=== PATIENT | male | born 1945 ===

== ENCOUNTER → 2021-05-03 11:34 | Outpatient (CLI) | payer MEDICARE, SELFPAY ==
[2021-05-03 14:12] LABS: COVID19 -Nasal RAPID Negative (Negative)
== END ==
PROVIDERS: Visit Provider Nurse Practitioner
DX: Z01.812 Encounter for preprocedural laboratory examination (principal); Z20.822 Contact with and (suspected) exposure to COVID-19
CPT/HCPCS: 87635; C9803

== ENCOUNTER 2021-05-06 08:20 | Observation (INO) | payer MEDICARE, OTHER, SELFPAY ==
[2021-04-28 09:19] VITALS: BMI 24.4
[2021-05-05] VITALS (12 sets, daily range): BP systolic 102–142; BP diastolic 62–89; PULSE 59–691; RESP 13–18; TEMP 35.6–36.5; O2SAT 93–98; BMI 24.4
--- NOTE | 2021-05-05 06:30 | DI.RAD.S_ITS ---
PROCEDURE: XR KNEE LT 1TO2V INDICATIONS: postop LEFT TOTAL KNEE TECHNIQUE: 2 view(s) of the knee acquired. [facility] [place] X[place] KNEE 4+ VIEWS LEFT, 03/04/2021, 9:15. FINDINGS: Bones: Patient is status post knee joint arthroplasty. Hardware components are in expected positions. Visualized bony structures are intact. Soft tissues: Overlying postoperative changes are noted. IMPRESSION: Postoperative changes as above. Dictated by: Chrissy Krishnamurthy M.D. on 05/05/2021 at 16:42 Approved by: Chrissy Krishnamurthy M.D. on 05/05/2021 at 16:42
[2021-05-05] MEDS: ACETAMINOPHEN 325 MG TABLET 975 MG PO (09:07)
[2021-05-05] MEDS: LACTATED RINGERS 1,000 ML 42 ML IV (09:08)
[2021-05-05] MEDS: PREGABALIN 75 MG CAPSULE PO (09:08)
[2021-05-05] MEDS: CELECOXIB 200 MG CAPSULE PO (09:08)
--- NOTE | 2021-05-05 09:31 | PM.PREOP ---
Pre-operative Note COVID-19 COVID-19 status: Negative Result date/Date tested (Pos, Neg/Pending): 05/03/21 Interval Note History & Physical reviewed/Exam performed by Physician: Yes Changes to H&P: No
[2021-05-05] MEDS: CEFAZOLIN 1 GM VIAL 2 GM IV (10:05)
[2021-05-05] MEDS: TRANEXAMIC ACID 1,000 MG VIAL 1000 MG INJ ×2 (10:08→11:04)
--- NOTE | 2021-05-05 10:27 | SUR.OPER ---
Supine on padded OR bed. Pillow under head, arms secured on padded armboards <90 degree abduction. Safety belt across torso. Non-operative leg secured with tape over blanket over lower leg. Operative leg secured in [place].
[2021-05-05] MEDS: BUPIVACAINE LIPOSOME 266 MG/20 ML VIAL INJ (10:35)
[2021-05-05] MEDS: MORPHINE 4 MG/ML INJ INJ (10:36)
[2021-05-05] MEDS: BUPIVACAINE 0.25% (PF) VIAL 60 ML INJ (10:37)
[2021-05-05] MEDS: EPINEPHrine 1 MG/ML 0.3 MG INJ (10:38)
--- NOTE | 2021-05-05 11:37 | P.OP_ITS ---
Operative Date/Time/Diagnoses Date of procedure: 05/05/21 Time of procedure: 11:38 Pre-op diagnosis: Left knee osteoarthritis Post-op diagnosis: same Procedure & Clinicians Procedure: Left total knee replacement Same procedure as scheduled: Yes Indications: The patient has had progressively worsening left knee pain with radiographic changes consistent with arthritis. Non-operative management has failed and the patient has requested total knee replacement. The risks, benefits and alternatives to surgery were discussed with the patient prior to proceeding. Risks discussed included, but were not limited to, failure to relieve pain, stiffness, infection, nerve damage, deep venous thrombosis, pulmonary embolism, stroke, coma, heart attack, permanent paralysis and , as well as the potential need for eventual revision of the prosthetic. Surgeon: Franklyn Hernandez Button Facing Machine Operator: Frank Chu Anesthesia Type: General, Spinal and Local Operative Notes Findings: Severe left knee osteoarthritis with a flexion contracture and erosion of the medial tibial bone. Large osteophytes. Significant varus deformity. Significant patellofemoral involvement as well. Closure Type: primary Specimen(s): none sent Prosthetic devices, grafts, tissues, transplants, or devices: Implants used in this procedure were manufactured by the [employer] and included the BCS II Journey total knee replacement with a size 7 cobalt chromium femur, size 6 left non porous tibial base plate, a 10 mm you will insert, and a 30 jesus II patellar component. Applied: implant(s) Estimated Blood Loss (mL): 25 Blood products transfused: none Tourniquet time (min): 50 Procedure in detail: The patient was seen in the pre-operative area, where the left knee was identified as the operative site and this was marked with my initials. The patient received pre-operative antibiotics, and was taken to the operating room and placed on the operative table in the supine position. After satisfactory anesthesia, a inspector timers out was performed. The left leg was encircled with a tourniquet about the proximal thigh, and the leg was prepared from the toes to the tourniquet with ChloroPrep in the usual fashion and draped through sterile drapes. The leg was elevated and exsanguinated with Eschmark bandage and the tourniquet inflated to 250 mmHg pressure. The knee was approached through an approximately 16 cm incision centered over the patella and carried into the knee through a medial parapatellar arthrotomy. The anterior osteophytes and soft tissues were removed. The rotational landmarks of Liang's line and the transepicondylar axis were marked on the femur with electrocautery, and intramedullary guide holes for the femur and tibia were created. The distal femoral cut was made in 6 degrees of valgus using the intramedullary guide at the +2 cut setting due to a significant flexion contracture. The proximal tibial cut was then made using the intramedullary guide, taking 1 mm of bone off the more involved medial side, this resulted in approximately 10 mm of bone removal from the less involved lateral side. The extension gap was checked and the rotation of the femoral component confirmed with the gap balancing blocks. The anterior, posterior and chamfer cuts were then made. The posterior osteophytes and soft tissues were then removed. The posterior capsule was injected with part of a mixture of 60 ml 0.25% Marcaine mixed with 20 ml Exparel and 4 mg of morphine for post-operative pain control. The remainder of this mixture was injected into the capsule and subcutaneous tissues during cement curing. The tibia was prepared with the rotation set by an extra medullary guide. Trial tibial and femoral components were then placed and the intercondylar notch cut through the femoral trial. Range of motion was 0-140 degrees, with good stability throughout the range. The patella was then cut to accommodate the patellar prosthetic. There was no need for a lateral release. The trials were then removed, and the femoral hole plugged with a bone plug. The bone was prepared with pulsatile lavage, and dried with a sponge. Cement was applied and the final prosthetics placed. Excess cement was removed during and after cement curing. After confirming there was no extruded cement posteriorly, the final tibial insert was placed. The knee was copiously irrigated and the tourniquet deflated. Hemostasis was obtained. The capsule was closed with interrupted # 2 polyester sutures. The subcutaneous layer was closed with 3-0 Vicryl, and the skin with a running 3-0 V-Lock suture and Dermabond. An Aquacel Ag dressing was applied and the patient was taken to recovery having tolerated the procedure well. Complications: none Post-operative Condition: stable Disposition: PACU Plan for aftercare: The patient will be maintained on a standard total knee replacement protocol with weight bearing as tolerated. The patient will receive aspirin and sequential compression devices for DVT prophylaxis. The patient will be discharged home when safe for the home environment.
[2021-05-05] MEDS: LACTATED RINGERS 1,000 ML 100 ML IV ×2 (12:50→21:53)
[2021-05-05] MEDS: ACETAMINOPHEN 325 MG TABLET 650 MG PO ×2 (14:49→20:22)
--- NOTE | 2021-05-05 15:16 | PT.IIE ---
Current Diagnoses Unilateral primary osteoarthritis, left knee (05/05/21) Surgery Performed Operation Date: 05/05/21 10:15 Actual Procedures p Total Knee Arthroplasty(Left) - Franklyn Hernandez MD Medical History (Last Updated 04/28/21 @ 10:17 by Marika Kumar RN) Compression fracture Hearing impaired HLD (hyperlipidemia) HTN (hypertension) Lower back pain Osteoarthritis Physical Therapy Inpatient Evaluation/Re-Eval M1 PT/OT-IP Prior Functional Status Start: 05/05/21 13:35 Freq: NEEDED Status: Active Protocol: Document 05/05/21 15:16 AW (Rec: 05/05/21 15:54 AW [id number]) Medical Review Prior Functional Status Medical History Reviewed Yes Communication Pt is [place]. He is an effective verbal communicator but struggles to hear when people are wearing masks. Mobility and Gait Independent without assistive device. Activities of Daily Living and IADL's Independent including driving. Social History Household Members spouse Living Arrangements House Number of Floors (Floors) 3 or More Floors Number of Stairs To Enter/Railing? 4 G[place]Z with R rail ascending. Pt plans to stay in an body coverer bedroom at discharge Home Environment High Toilet,Walk in Shower Home Equipment Front Wheel Walker,Grab Bars In Shower Employment Status Retired Additional Social History Comment Pt lives with his , Emi, who will be available to assist at discharge but states she will not be able to assist much physically - especially with stairs. M2 PT-IP Current Condition Start: 05/05/21 13:35 Freq: NEEDED Status: Active Protocol: Document 05/05/21 15:16 AW (Rec: 05/05/21 15:54 AW [id number]) Physical Therapy Current Condition Current Condition Evaluation Date 05/05/21 Treatment Diagnosis L TKA; difficulty in walking Onset Date 05/05/21 Weight Bearing Status Weight Bearing Status Weight Bear as Tolerated M3 PT-IP Subjective Start: 05/05/21 13:35 Freq: NEEDED Status: Active Protocol: Document 05/05/21 15:16 AW (Rec: 05/05/21 15:54 AW [id number]) Subjective Physical Therapy Visit Type Type Initial Evaluation Visit Start Time 14:47 Visit Stop Time 15:16 Total Visit Minutes 29 Notes Pt's spouse was present throughout. Number of ENGLISH INSTRUCTOR Visits 0 Physical Therapy Visit Comments Patient Comments Pt is willing to participate with PT. I don't like to sit around too much. Patient Goals Return home with spouse support. Therapy Pain Assessment Pain When Pain Assessed During Mobility Pain Present Pain Present Pain Reported Location left knee Intensity 2 Scale Used Numeric (0 - 10) Pain Management Techniques Apply Cold,Modification of Treatment M4 PT-IP Mobility and Gait Start: 05/05/21 13:35 Freq: NEEDED Status: Active Protocol: Document 05/05/21 15:16 AW (Rec: 05/05/21 15:54 AW [id number]) PT-Bed Mobility Assessment Supine to Sit Supine to Sit Standby Assistance PT-Transfer Assessment Sit to and From Stand Sit to and from Stand Independent Equipment Transfer Assistive Device Gait Belt,Front Wheeled Walker Orthotic/Prosthetic Devices or Brace: No Transfers Transfer Destination Chair Transfer Technique ambulated with FWW Transfer Ability Level of Assist Standby Assistance Comments Mobility Comments Pt was lying in bed as PT arrived. BP 131/76 HR 63. He sat up on right side EOB SBA and stood from the bed after PT educated in sit to stand techniques. He used FWW for balance and offweighting as he shifted weight laterally. He then ambulated to the chair and sat SBA. He agreed to walk more, standing from the chair with cues to push off with his arms. He ambulated 160 feet with FWW SBA. Gait was notable for slight trunk flexion but pt was safe with FWW. On return to the room, pt agreed to sit up in the chair , transferring SBA. He was left with BLE elevated, fresh ice applied, and call light/ tray table in reach. Gait Assessment Gait Gait Assistance Required: Standby Assistance Distance (Feet) 160 Able to Maintain Weight Bearing Status Yes During Gait Assistive Devices Assistive Device Gait Belt,Front Wheeled Walker Orthotic/Prosthetic Devices or Brace: No Gait Deviations General Gait Pattern Antalgic,Flexed Trunk Factors Limiting Gait Function Factors Limiting Gait Function Limited Range of Motion,Pain Comments Gait Comments See mobility comments Stair Climbing Assessment Comments Stair Climbing Comments Not assessed. PT-Balance Assessment Sitting Balance and Reactions Static Sitting Balance Ability Normal Dynamic Sitting Balance Ability Normal Standing Balance and Reactions Static Standing Balance Ability Good Dynamic Standing Balance Ability Good Device Used FWW M5 PT-IP Objective Assessments Start: 05/05/21 13:35 Freq: NEEDED Status: Active Protocol: Document 05/05/21 15:16 AW (Rec: 05/05/21 15:54 AW [id number]) Orientation Orientation/Cognition Level of Alertness Alert Orientation Name,Day of Week,Place, Situation Language Function Ability Hard of Hearing Safety Awareness Understands Safety Issues Memory Description No Deficits Noted Gross Range of Motion Lower Extremity ROM Assessment Left Impaired Strength Lower Extremity Strength Assessment Left Impaired Hip 4+/5 Knee 3/5 Ankle 5/5 Comments Strength Comments RLE grossly 5/5 Sensation Assessment Sensation Gross Sensation WNL Muscle Tone Muscle Tone WNL Yes M6 PT-IP Treatment Start: 05/05/21 13:35 Freq: NEEDED Status: Active Protocol: Document 05/05/21 15:16 AW (Rec: 05/05/21 15:54 AW [id number]) Physical Therapy Treatment Exercises Exercises Ankle Pumps,Quad Sets,Heel Slides,Seated Knee Flexion/ Extension Education Education Provided Weight Bearing Status,Post-Op Packet,Safety Other Treatments Other Treatment Performed Educated pt on PT plan of care , weightbearing status, cryotherapy for control of swelling and pain. M7 PT-IP Assessment and Plan Start: 05/05/21 13:35 Freq: NEEDED Status: Active Protocol: Document 05/05/21 15:16 AW (Rec: 05/05/21 15:54 AW [id number]) PT Summary Assessment and Plan Potential Rehabilitation Potential Excellent Status of Condition at Evaluation Evolving Summary Impairments Pain,ROM,Strength,Balance, Transfers,Gait Assessment Summary Anuj is an active 75 yo man seen for PT evaluation on POD0 following L TKA. He is independent in all regards at baseline. On evaluation, he required SBA with all mobilities using FWW. PT anticipates he will be safe to discharge home with assist and outpatient PT once medically cleared. He will need to clear stairs prior to discharge. Goals Bed Mobility Goal Independent Transfer Goal Independent,Front Wheeled Walker Gait Goal Independent,Front Wheel Walker Gait Distance 200 Other Goals - up/down 3 steps with R rail ascending SBA Days to Meet Goals 2 Frequency of Treatment Frequency Of Treatment Twice a Day Treatment Plan Physical Therapy Treatment Plan Bed Mobility Training,Transfer Training,Gait Training, Therapeutic Exercise,Balance Retraining,Post Op Education, Discharge Planning,Hot or Cold Pack Other Recommendations and Next Treatment stairs Focus Precautions Other Precautions WBAT LLE Recommendations To Nursing Amount of Assist Needed Standby Assistance Discharge Recommendations PT Discharge Recommendations Home with Assistance, Outpatient PT Transportation Needs at Discharge Private Vehicle
--- NOTE | 2021-05-05 15:31 | PC.NURSE ---
Pt to acute care room 217 at 1230. Pt awake, drowsy. Able to follow instructions. Denies pain, denies nausea. Call light within reach. Pt on room air and placed on continuous pulse ox. Implementation of post op vitals initiated and are stable at this time. SCDs intact and on. IV right wrist is patent. Dressing to left knee is c/d/i and elevated on pillow with ice pack intact. Emi at bedside. Pt [place] with hearing aids in, responding appropriately. Oriented x 4. Pt up with PT walking in hallway at shift change. Continues to deny pain.
--- NOTE | 2021-05-05 16:22 | PC.NURSE ---
Addendum entered by Faith Frank R.N. 05/05/21 21:59: Pt ambulatory in hallway with CLINICAL TRAINING SPECIALIST standby. Gait is steady. Maintains left knee pain has not exceeded 3/10. Ice intermittently to left knee. Yon wrap remains clean and dry without any change in neurovascular status this evening shift. Addendum entered by Faith Frank R.N. 05/05/21 18:02: Per CLINICAL TRAINING SPECIALIST, pt able to void without difficulty. Pt rates left knee pain 3/10, but refuses narcotics as offered stating prefers to stay with tylenol. Remains up in chair. Continuous pulse oximeter in place with oxygen level on room air 96%. Original Note: Pt ambulatory in hallway with P.T. @ beginning of shift. Steady gait with walker use. Up in recliner in room with spouse at chairside. Pt admits to left knee pain 3/10, but denies any need or desire for further analgesia. Denies urge to void. Taking oral fluids well. Discussion with pt and pt's spouse re urinary retention occurring occasionally s/p surgery and spinal and will monitor accordingly. Pt uses I.S. to 1500 with reminder. Instructed pt and pt's spouse not to attempt out of chair without calling for staff assistance and both parties verbalize understanding and agreement.
[2021-05-05] MEDS: DOCUSATE 100 MG CAPSULE PO (20:21)
[2021-05-05] MEDS: ASPIRIN EC 81 MG TABLET PO (20:22)
[2021-05-06 00:05] VITALS: BP 123/77; PULSE 62; RESP 18; TEMP 36.3; O2SAT 96
[2021-05-06 03:15] VITALS: BP 119/71; PULSE 62; RESP 18; TEMP 36.4; O2SAT 94
[2021-05-06] MEDS: OXYCODONE IR 5 MG TABLET PO ×2 (05:49→09:39)
[2021-05-06 06:10] LABS: Hematocrit 35.4 % (41-53); Hemoglobin 11.8 g/dL (13.5-17.5)
--- NOTE | 2021-05-06 07:24 | P.DS_ITS ---
History of Present Illness History of Present Illness Date Patient Seen: 05/06/21 Time Patient Seen: 07:24 Chief complaint: Left Total Knee Arthroplasty *OPB* Narrative: Patient is complaining of mild left knee pain this morning, which is well controlled with current pain regimen. He denies any fevers, chills, night sweats. He denies any numbness or tingling in his bilateral lower extremities. He is working with physical therapy. Overall he is feeling well and would like to try to go home today after physical therapy. Discharge Providers Provider Discharge Date: 05/06/21 Primary care physician: Jimbo Eubanks MD Consults: 05/05/21 12:41 Consult to Discharge Planning Routine Comment: Consult to Physical Therapy Evaluate & Treat Comment: Physician Instructions: postop TKA protocol Discharge provider: Harmony Rhodes PA-C Summary Hospital Course Discharge Diagnosis: Left knee osteoarthritis Hospital Course: Procedure: Left total knee replacement Same procedure as scheduled: Yes Indications: The patient has had progressively worsening left knee pain with radiographic changes consistent with arthritis. Non-operative management has failed and the patient has requested total knee replacement. The risks, benefits and alternatives to surgery were discussed with the patient prior to proceeding. Risks discussed included, but were not limited to, failure to relieve pain, stiffness, infection, nerve damage, deep venous thrombosis, pulmonary embolism, stroke, coma, heart attack, permanent paralysis and , as well as the potential need for eventual revision of the prosthetic. Surgeon: Franklyn Hernandez Performance Manager: Frank Chu Anesthesia Type: General, Spinal and Local Operative Notes Findings: Severe left knee osteoarthritis with a flexion contracture and erosion of the medial tibial bone. Large osteophytes. Significant varus deformity. Significant patellofemoral involvement as well. Closure Type: primary Specimen(s): none sent Prosthetic devices, grafts, tissues, transplants, or devices: Implants used in this procedure were manufactured by the [employer] and included the BCS II Journey total knee replacement with a size 7 cobalt chromium femur, size 6 left non porous tibial base plate, a 10 mm you will insert, and a 30 jesus II patellar component. Applied: implant(s) Estimated Blood Loss (mL): 25 Blood products transfused: none Tourniquet time (min): 50 Status at Discharge Cognitive/behavioral status at discharge: oriented Functional status at discharge: uses cane/walker Overall status at discharge: patient is progressing back to baseline Exam Vital Signs (past 8 hours): - 05/06/21 00:05 05/06/21 03:15 Temperature 97.4 F L 97.5 F L Pulse Rate 62 62 Respiratory Rate 18 18 Blood Pressure 123/77 119/71 Pulse Oximetry 96 94 Oxygen Delivery Method Room Air Oxygen Flow Rate 0 Narrative Exam Narrative: Pleasant 75-year-old male, resting comfortably in bed, no acute distress. Yon bandage is clean, dry, intact. Bilateral lower extremities with normal motor functions. Sensation is intact grossly to light touch in bilateral lower extremities. Both legs are warm and dry. Bilateral calves are soft, nontender to palpation. Objective Labs Result Diagrams: 05/06/21 05:45 Labs: Laboratory Results - last 24 hr 05/06/21 05:45 Hgb 11.8 L Hct 35.4 L PFSH Medical History Compression fracture Hearing impaired HLD (hyperlipidemia) HTN (hypertension) Lower back pain Osteoarthritis Surgical History History of carpal tunnel surgery of right wrist History of cataract surgery History of surgery History of surgery History of vasectomy Hx of left inguinal hernia repair Hx of nasal septoplasty Hx of right inguinal hernia repair Hx of tonsillectomy Social History household members: spouse Smoking Status: Never smoker alcohol intake: current Discharge Assessment & Plan Assessment and Plan Assessment: Patient is progressing as expected status post left total knee arthroplasty Plan of Treatment: Weight-bearing as tolerated with front wheeled walker. The patient was given oxycodone for moderate to severe pain. Use aspirin 81 mg twice daily for DVT p rophylaxis x6 weeks. The plan is to discharge home today once cleared by Physical therapy. Discharge Plan Discharge Plan Patient Disposition: Home Discharge orders & Medications Discharge Orders: Discharge (Order); Ordered 05/06/21 Ordered By: Harmony Rhodes Prescriptions: New acetaminophen 500 mg capsule 500 mg PO Q4HR MDD 6 tabs/day Qty: 90 RF: 0 aspirin 81 mg Tablet,Delayed Release (Dr/Ec) 81 mg PO BID PRN (Reason: prevent blood clots) 45 Days Qty: 90 RF: 0 docusate sodium [DOK] 100 mg Capsule 100 mg PO BID PRN (Reason: constipation from narcotic pain meds) Qty: 30 RF: 0 oxycodone 5 mg Tablet 5 mg PO Q3HR PRN (Reason: Pain, Moderate (4-6)-severe (7-10)) Qty: 42 RF: 0 Continued losartan 50 mg Tablet 50 mg PO DAILY RF: 0 pravastatin 40 mg Tablet 40 mg PO DAILY RF: 0 vitamins A,C,J-mnmf-uthcqx 7,160 unit- 113 mg-100 unit Tablet 1 tab PO DAILY RF: 0 Changed meloxicam 15 mg Tablet 15 mg PO DAILY PRN (Reason: inflammation/pain) Qty: 0 RF: 0 Discontinued aspirin [Aspir-81] 81 mg Tablet,Delayed Release (Dr/Ec) 81 mg PO DAILY RF: 0 Follow up/Referrals: Franklyn Hernandez MD [Physician] - (2 weeks for postop appointment) Jimbo Eubanks MD [Primary Care Provider] - Diet/Activity/Treatments Diet: Diet as Tolerated and Regular Activity: Weight-bearing as tolerated with front wheeled walker Cold/Heat Therapy: Use ice as needed for pain Other treatments: Use aspirin 81 mg twice daily for 6 weeks to prevent blood clots, then resume your normal dose Skin/Wound/Dressing Care Report to your healthcare provider any signs of infection, such as:: chills, fever, night sweats, unusual drainage and unusual redness Dressing: Okay to remove Yon wrap after 48-72 hours. Please call the office if waterproof bandage underneath becomes soiled or saturated. Other wound treatment: Okay to shower after 48 hours Visit Report/Discharge Packet Instructions: DI for Knee Replacement Stand Alone Forms: Surgery Discharge Discharge Data Primary Care Provider: Jimbo Eubanks Attending Provider: Franklyn Hernandez Quality VTE Deep Vein Thrombosis/Pulmonary Embolism Present on Admission: No
[2021-05-06 07:27] VITALS: BP 113/72; PULSE 64; RESP 16; TEMP 36.2; O2SAT 96
--- NOTE | 2021-05-06 09:29 | PT.IPTN ---
Current Diagnoses Unilateral primary osteoarthritis, left knee (05/06/21) Surgery Performed Operation Date: 05/05/21 10:15 Actual Procedures p Total Knee Arthroplasty(Left) - Franklyn Hernandez MD Physical Therapy Treatment Note M2 PT-IP Current Condition Start: 05/05/21 13:35 Freq: NEEDED Status: Active Protocol: Document 05/05/21 15:16 AW (Rec: 05/05/21 15:54 AW [id number]) Physical Therapy Current Condition Current Condition Evaluation Date 05/05/21 Treatment Diagnosis L TKA; difficulty in walking Onset Date 05/05/21 Weight Bearing Status Weight Bearing Status Weight Bear as Tolerated M3 PT-IP Subjective Start: 05/05/21 13:35 Freq: NEEDED Status: Active Protocol: Document 05/06/21 09:29 AW (Rec: 05/06/21 10:51 AW [id number]) Subjective Physical Therapy Visit Type Type Treatment Note Visit Start Time 09:13 Visit Stop Time 09:29 Total Visit Minutes 16 Notes Pt's spouse was present throughout. Number of WELDER REPAIR Visits 0 Physical Therapy Visit Comments Patient Comments I'm ready to go home. Therapy Pain Assessment Pain When Pain Assessed During Mobility Pain Present Pain Present Allowed to Sleep Location left knee Intensity 5 Scale Used Numeric (0 - 10) Pain Management Techniques Apply Cold,Modification of Treatment M4 PT-IP Mobility and Gait Start: 05/05/21 13:35 Freq: NEEDED Status: Active Protocol: Document 05/06/21 09:29 AW (Rec: 05/06/21 10:51 AW [id number]) PT-Transfer Assessment Sit to and From Stand Sit to and from Stand Independent Equipment Transfer Assistive Device Gait Belt,Front Wheeled Walker Orthotic/Prosthetic Devices or Brace: No Transfers Transfer Destination Chair Transfer Technique ambulated with FWW Transfer Ability Level of Assist Standby Assistance Comments Mobility Comments Pt was sitting up in the chair as PT arrived. He monet from the chair and ambulated in the halls with FWW SBA 300 feet. He returned to the room and transferred back to the chair SBA. Gait Assessment Gait Gait Assistance Required: Standby Assistance Distance (Feet) 300 Able to Maintain Weight Bearing Status Yes During Gait Assistive Devices Assistive Device Gait Belt,Front Wheeled Walker Orthotic/Prosthetic Devices or Brace: No Gait Deviations General Gait Pattern Antalgic,Flexed Trunk,Step-to Gait Factors Limiting Gait Function Factors Limiting Gait Function Limited Range of Motion,Pain Comments Gait Comments Pt responded well to cues to slow down and work on weight acceptance and stance time LLE . With these adjustments, hip extension and posture improved as well. Stair Climbing Assessment Evaluation Level of Assist On Stairs Standby Assistance Devices Stair Climbing Assistive Devices Left Railing,Right Railing Technique/Endurance Stair Climbing Direction Ascend and Descend Stair Climbing Technique Step to Step Number of Steps Climbed 3 Stair Climbing Set # Repetitions (reps) 3 Comments Stair Climbing Comments After education on sequencing and technique, pt climbed first set with B rails, second set with L rail, and third set with R rail. All were SBA with good foot clearance and no cues needed. PT-Balance Assessment Sitting Balance and Reactions Static Sitting Balance Ability Normal Dynamic Sitting Balance Ability Normal Standing Balance and Reactions Static Standing Balance Ability Good Dynamic Standing Balance Ability Good Device Used FWW M5 PT-IP Objective Assessments Start: 05/05/21 13:35 Freq: NEEDED Status: Active Protocol: Document 05/05/21 15:16 AW (Rec: 05/05/21 15:54 AW [id number]) Orientation Orientation/Cognition Level of Alertness Alert Orientation Name,Day of Week,Place, Situation Language Function Ability Hard of Hearing Safety Awareness Understands Safety Issues Memory Description No Deficits Noted Gross Range of Motion Lower Extremity ROM Assessment Left Impaired Strength Lower Extremity Strength Assessment Left Impaired Hip 4+/5 Knee 3/5 Ankle 5/5 Comments Strength Comments RLE grossly 5/5 Sensation Assessment Sensation Gross Sensation WNL Muscle Tone Muscle Tone WNL Yes M6 PT-IP Treatment Start: 05/05/21 13:35 Freq: NEEDED Status: Active Protocol: Document 05/06/21 09:29 AW (Rec: 05/06/21 10:51 AW [id number]) Physical Therapy Treatment Exercises Exercises Quad Sets,Seated Knee Flexion/ Extension Education Education Provided Weight Bearing Status,Post-Op Packet,Safety Other Treatments Other Treatment Performed Educated pt to continue using FWW until assessed by outpatient PT. M7 PT-IP Assessment and Plan Start: 05/05/21 13:35 Freq: NEEDED Status: Active Protocol: Document 05/06/21 09:29 AW (Rec: 05/06/21 10:51 AW [id number]) PT Summary Assessment and Plan Potential Rehabilitation Potential Excellent Status of Condition at Evaluation Evolving Summary Impairments Pain,ROM,Strength,Balance, Transfers,Gait Progress Towards Goals Progressing Toward Goals Assessment Summary Anuj was able to progress all mobility today and complete stair training successfully. He responded well to cues to equalize his step lengths and stance time. He is safe with FWW. He will have his at home to help. Pt is safe for discharge. Goals Bed Mobility Goal Independent Transfer Goal Independent,Front Wheeled Walker Gait Goal Independent,Front Wheel Walker Gait Distance 200 Other Goals - up/down 3 steps with R rail ascending SBA Days to Meet Goals 2 Frequency of Treatment Frequency Of Treatment Discharge Precautions Other Precautions WBAT LLE Recommendations To Nursing Amount of Assist Needed Standby Assistance Discharge Recommendations PT Discharge Recommendations Home with Assistance, Outpatient PT Transportation Needs at Discharge Private Vehicle
[2021-05-06] MEDS: MELOXICAM 7.5 MG TABLET 15 MG PO (09:38)
[2021-05-06 09:39] VITALS: BP 114/72; PULSE 64
[2021-05-06] MEDS: LOSARTAN 50 MG TABLET PO (09:39)
[2021-05-06] MEDS: ASPIRIN EC 81 MG TABLET PO (09:39)
[2021-05-06] MEDS: ACETAMINOPHEN 325 MG TABLET 650 MG PO (09:40)
[2021-05-06] MEDS: VIT C/E/ZN/COPPR/LUTEIN/ZEAXAN CAPSULE 1 CAP PO (09:40)
[2021-05-06] MEDS: DOCUSATE 100 MG CAPSULE PO (09:40)
--- NOTE | 2021-05-06 11:06 | CM.DANOTE ---
DC Assessment Plan: 75 yr old male admitted for L TKA preformed by DR. Hernandez. Patient currently lives with his Emi Ramos at home. CM met with patient and his at the bedside and explained CM role. Patient stated understanding. Patient has been up with PT and plans on DC today after stair are preformed with PT. Insurance: Medicare and Commercial Insurance Plan: DC home with after stairs with PT no needs notes at this time. CM will follow to assist with any new DC planning needs that may arise. Mckenzie Henley RN,BSN Discharge Planning/Care Management CM Discharge Assessment Start: 05/06/21 11:04 Freq: Status: Active Protocol: Document 05/06/21 11:04 HS (Rec: 05/06/21 11:05 HS [id number]) Discharge Planning Assessment Assigned Hospital Pharmacy Technician Mckenzie Henley RN DPOA/Assigned Designee Name Emi Ramos Contact Information [phone] Advance Directives? No History Provided By Patient,Medical Record Has Patient been admitted in last 30 No days? Prior Living Arrangements House Household Members spouse Type of transporation used prior to Drives own vehicle admit Independent with ADL's Yes Is patient alert and oriented? Yes Caregiver for Another No Patient/Family Preference OP PT Therapy Barriers to Discharge No Discharge Plan Home Referrals Initiated None needed Whiteboard Updated in Patient Room with Yes name and ext. # of Hospital Pharmacy Technician Review Status In Process Next Review Type Continued Stay Review Pre-Anesthesia Assessment Start: 04/28/21 09:19 Freq: Status: Active Protocol: Document 04/28/21 09:19 CAB (Rec: 04/28/21 09:47 CAB [id number]) Pre-Anesthesia Assessment Preferred Name Les Patient Information Reviewed Via Phone Assessment Assessment Completed With Patient,Spouse Comment Labs/EKG done, not here, COVID screen-pt needs to schedule Primary Care Provider Jimbo Eubanks Seen Specialist in Last 12 Months Yes Specialist Seen Opthamologist/Sales Development Director, Orthopedist Primary Language Belgian Marker Assembler Required No Height 170.18 cm Weight 70.76 kg Body Mass Index (BMI) 24.4 Hearing Ability Hard of Hearing,Use of Hearing Aid Visual Assist Glasses Dentition Type Teeth, Natural Present Barriers to Learning Auditory Hx Anesthesia Reactions Yes: Urinary retention s/p spinal, trouble waking up from GA Hx Family Anesthesia Reaction No Hx Malignant Hyperthermia No Hx Blood Transfusions No Anesthesia Review Requested No alcohol intake current alcohol intake frequency holidays/special occasions only Smoking Status Never smoker Substance Use Type does not use Pain Present Pain Reported Musculoskeletal Symptoms Abnormal Gait,Back Pain, Difficulty Walking,Joint Pain History of Falling (Recent or History of No ) Patient is completely paralyzed or No completely immobile Mental Status Oriented to own ability Is patient on oxygen? No Does patient have PERDUE/SOB No Hx Sleep Apnea No Currently Taking a Beta Sandra No Hx Chest Pain No Hx SOB No Hx Syncope or Dizziness No Anti-Coagulant Therapy No Has a Power Plant Inspector No Cardiac Testing No Hx Pacemaker/ICD No Pacemaker Rep Required? No Diet Type At Home Regular dysphagia No Urinary Catheter Present No Hx Urinary Self Catheterization No Diabetes No Hx Drug Resistant Organism No Presence of External or Internal Medical Yes: Left eye Devices Have you had any close contact with No someone diagnosed with COVID-19? Marital Status Lives With spouse Prior Living Arrangements House Number of Floors (Floors) 3 or More Floors Support System Spouse Does the Patient Have Assistance After Yes Surgery Patient Discharge Plan Description Return Home Comment Pt not advised on length of stay per surgeon Feels Safe in Current Environment Yes Been Physically Hurt or Threatened By a No Person in Current Environment Do you have thoughts of harming yourself None or others? Are you currently considering suicide? No Do you have a plan to hurt yourself or No Plan others? Do You Have Any Spiritual Beliefs That No May Affect Your HC Choices? Do You Have Any Cultural Practices That No May Affect Your HC Choices? Comment Gnosticist Who Can We Speak to About Patient's Care Family, friends Identifying Code for Release of Patient Declines to issue Information Health Care Proxy/Next of Kin Emi () Health Care Proxy Emergency Contact Name Emi () Emergency Contact Advance Directives? No Power of Arts Manager No PAC Instructions Durable medical equipment, Medications to take/avoid, Nasal antibiotic,No ETOH/ petroleum product on skin DOS, NPO,Post-op transportation,Pre -surgical wash,Sensory aids, Sturdy shoes/comfortable clothes,Do not bring valuables and remove jewelry
--- NOTE | 2021-05-06 11:14 | PC.NURSE ---
Discharge note: Pt post op day 1; pain well controlled and up with 1 person standby assist, using walker. PT cleared for discharge. Discharge packet printed and reviewed medications, post op knee instructions, bowel management, signs and symptoms of infection, reasons that warrant a call to Dr. Instructed to keep sherwin bandage dry until tomorrow afternoon, he can removed sherwin bandage and shower. Instructed pt that the clear dressing should remain on and not to remove. Instructed pt to call surgeon office if dressing starts to fall off. All scripts sent with patient. IV discontinued. at bedside during instruction as well. Walker went with patient (his own). states they already have a follow up appt at surgeon office. Kimberly THURMAN wheeled pt to car via wheelchair; driving. Left acute care in stable condition without distress.
== END 2021-05-06 11:18 | disposition home or self-care (01) ==
LOC: OR 08:38 → AC 08:38
PROVIDERS: Admitting Provider Orthopaedic Surgery; PCP Family Medicine; Referring Provider Orthopaedic Surgery; Visit Provider Orthopaedic Surgery
PROC: 0SRD0JZ Replacement of Left Knee Joint with Synthetic Substitute, Open Approach (ICD-10-PCS; CPT 27447; principal; 2021-05-05 10:15)
DX: M17.12 Unilateral primary osteoarthritis, left knee (principal); I10 Essential (primary) hypertension; E78.5 Hyperlipidemia, unspecified
CPT/HCPCS: 27447; 36415; 73560; 85014; 85018; 97116; 97161; C1776; G0378; C9290; J0171; J0690; J1100; J2250; J2270; J2405; J2704; J3010

== ENCOUNTER 2021-05-08 22:28 | Observation (INO) | payer MEDICARE, OTHER, SELFPAY ==
[2021-05-05 12:30] VITALS: BMI 24.4
[2021-05-08 22:20] VITALS: BP 135/77; PULSE 101; RESP 16; TEMP 37.4; O2SAT 97
[2021-05-08 22:39] VITALS: BMI 25.0
[2021-05-09] MEDS: LACTATED RINGERS 1,000 ML 100 ML IV ×2 (00:10→08:06)
[2021-05-09 03:45] VITALS: BP 115/69; PULSE 78; RESP 16; TEMP 36.5; O2SAT 96
[2021-05-09 04:57] LABS: Add Manual Diff / Slide Review NO; Basophils Absolute Auto 0 /uL (0-100); Basophils Percent Auto 0.3 % (0-2); Eosinophils Absolute Auto 100 /uL (0-450); Eosinophils Percent Auto 1.1 % (2-4); Hematocrit 30.4 % (41-53); Hemoglobin 10.3 g/dL (13.5-17.5); Lymphocytes Absolute Auto 3100 /uL (1100-4500); Lymphocytes Percent Auto 38.2 % (25-40); Mean Corpuscular Hemoglobin 31.3 PG (26-34); Mean Corpuscular Volume 92.1 fL (80-100); Monocytes Absolute Auto 700 /uL (0-900); Monocytes Percent Auto 8.2 % (3-14); Neutrophils Absolute Auto 4300 /uL (1500-7000); Neutrophils Percent Auto 52.2 % (50-75); Platelet Count 152 X10^3/uL (150-400); Red Blood Cell Count 3.31 X10^6/uL (4.5-5.9); Red Cell Distribution Width 13.2 % (11.6-14.8); White Blood Cell Count 8.2 X10^3/uL (4.5-11.0)
[2021-05-09 05:14] LABS: Alanine Aminotransferase 40 IU/L (<50); Albumin 3.3 g/dL (3.5-5.0); Albumin Globulin Ratio 1.3 (1.0-2.8); Alkaline Phosphatase 80 U/L (38-126); Aspartate Aminotransferase 56 IU/L (17-59); BUN Creatinine Ratio 22.1 (6-22); Bilirubin Total 0.7 mg/dL (0.2-1.3); Blood Urea Nitrogen 17 mg/dL (9-20); Calcium 8.4 mg/dL (8.4-10.2); Carbon Dioxide 28 mmol/L (22-32); Chloride 107 mmol/L (98-107); Estimated Glomerular Filt Rate > 60.0 mL/min (>60); Globulin 2.5 g/dL (1.7-4.1); Glucose 106 mg/dL (80-110); HEMOLYSIS < 15 (0-50); Potassium 4.2 mmol/L (3.4-5.1); Sodium 137 mmol/L (137-145); Total Protein 5.8 g/dL (6.3-8.2)
[2021-05-09 06:01] LABS: Procalcitonin 0.92 ng/mL (<0.5)
--- NOTE | 2021-05-09 07:18 | P.HP_ITS ---
History of Present Illness History of Present Illness Date Patient Seen: 05/09/21 Time Patient Seen: 07:19 Date of Onset of Symptoms: 05/08/21 Chief complaint: left knee infection Narrative: Patient is a 75-year-old male status post a left total knee arthroplasty on 05/05/[address] Hernandez. Was discharged from the hospital uneventfully on 05/06/2021. On 05/08/2021 his called the office the complaint of constipation recommended to obtain a laxative. On the evening of 05/08/2021 they called back a taken if temperature at home was 102 and the patient complained chills or feeling ?cold? and could not get warm. They presented to [facility] Emergency Room where labs were drawn which were within normal limits patient was not febrile at [facility]. He did have blood cultures drawn and a urinalysis and culture that I do not have the results from. He did receive a dose of vancomycin. Per report patient also co mplained of knee pain and the emergency room physicians at [facility] felt that the knee was infected related to me cellulitis and wound infection. 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 To rule out postoperative infection the patient was transferred to [facility]. The patient States to me this morning he has not had any more chills once he got to the hospital and got a warm blanket he was able to get warm. Does complain of some knee soreness but no pain at rest. He has not been febrile at [facility] either. He has not had any Tylenol either. He does state he had a bowel movement [facility] and no longer feels the urge to have a bowel movement. Patient History Medical History Compression fracture Hearing impaired HLD (hyperlipidemia) HTN (hypertension) Lower back pain Osteoarthritis Surgical History History of carpal tunnel surgery of right wrist History of cataract surgery History of surgery History of surgery History of vasectomy Hx of left inguinal hernia repair Hx of nasal septoplasty Hx of right inguinal hernia repair Hx of tonsillectomy Family & Social History Social History: household members spouse Prior Living Arrangements House Safety & Behavioral: Feels Safe in Current Yes Environment Been Physically Hurt or No Threatened By a Person Suicidal Ideation Description None Tobacco & Substance use: Smoking Status Never smoker alcohol intake current alcohol intake frequency holiday/special occasion Substance Use Type does not use Meds Home Medications and Allergies Home Medications Medication Instructions Recorded Confirmed Type losartan 50 mg tablet 50 mg PO DAILY 04/28/21 05/09/21 History pravastatin 40 mg tablet 40 mg PO DAILY 04/28/21 05/09/21 History vitamins A,C,P-yvun-spmxxc 7,160 1 tab PO DAILY 05/05/21 05/09/21 History unit-113 mg-100 unit tablet acetaminophen 500 mg capsule 500 mg PO Q4HR #90 cap MDD 6 05/06/21 05/09/21 Rx tabs/day aspirin 81 mg tablet,delayed 81 mg PO BID PRN 45 Days #90 tab 05/06/21 05/09/21 Rx release docusate sodium 100 mg capsule 100 mg PO BID PRN #30 cap 05/06/21 05/09/21 Rx (DOK) meloxicam 15 mg tablet 15 mg PO DAILY PRN #0 tab 05/06/21 05/09/21 Rx oxycodone 5 mg tablet 5 mg PO Q3HR PRN #42 tab 05/06/21 05/09/21 Rx Allergies Allergy/AdvReac Type Severity Reaction Status Date / Time No Known Drug Allergies Allergy Verified 05/05/21 08:40 Review of Systems Review of Systems Narrative: Endorsed a fever once yesterday and chills. Endorse constipation. Endorses and knee pain and swelling-moderate Exam Vital Signs (past 8 hours): - 05/09/21 03:45 Temperature 97.7 F Pulse Rate 78 Respiratory Rate 16 Blood Pressure 115/69 Pulse Oximetry 96 Oxygen Delivery Method Room Air Oxygen Flow Rate 0 Narrative Exam Narrative: Patient is alert oriented male lying in bed no acute distress. HEENT exam normocephalic atraumatic On exam lungs clear to auscultation Heart regular rate and rhythm Abdomen is soft Left lower extremity Aquacel dressing in place but a wrinkled toward the distal aspect. This is removed and the knees expected. There is swelling consistent with postoperative appearance. Mild ecchymosis. Dermabond and Monocryl sutures in place. There is no erythema. No openings or drainage. Minimal tenderness with palpation along the lateral aspect of the knee. Patient demonstrates active flexion to nearly 90? with minimal discomfort and extends to 0 actively. Demonstrates 5/5 dorsiflexion plantar flexion inversion eversion. Calf and thigh compartments are soft. Objective Labs Result Diagrams: 05/09/21 04:30 05/09/21 04:30 Labs: Laboratory Results - last 24 hr 05/09/21 05/09/21 05/09/21 04:30 04:30 04:30 WBC 8.2 RBC 3.31 L Hgb 10.3 L Hct 30.4 L MCV 92.1 MCH 31.3 MCHC 34.0 RDW 13.2 Plt Count 152 Neut % (Auto) 52.2 Lymph % (Auto) 38.2 Chambers % (Auto) 8.2 Eos % (Auto) 1.1 L Baso % (Auto) 0.3 Neut # (Auto) 4300 Lymph # (Auto) 3100 Chambers # (Auto) 700 Eos # (Auto) 100 Baso # (Auto) 0 Sodium 137 Potassium 4.2 Chloride 107 Carbon Dioxide 28 BUN 17 Creatinine 0.77 Estimated GFR > 60.0 BUN/Creatinine Ratio 22.1 H Glucose 106 Calcium 8.4 Total Bilirubin 0.7 AST 56 ALT 40 Alkaline Phosphatase 80 Total Protein 5.8 L Albumin 3.3 L Globulin 2.5 Albumin/Globulin Ratio 1.3 Procalcitonin 0.92 H Assessment & Plan Assessment and plan (1) Postoperative fever: Status: Acute (2) History of total knee replacement: Status: Acute (3) Constipation: Status: Acute Plan: 1. Fever has not any had any fevers since presenting to medical care either at [facility] or [facility]. And has not had any Tylenol since being at [facility]. Had blood cultures drawn at [facility] I do not have the results from these we will request these to be faxed over today as well as a CRP that was drawn there and the urine analysis. Had had vancomycin dose [facility] at about 8:00 p.m.. We will schedule another 1 for an 8:00 a.m. this morning for 12 hour difference depending on the results from the blood cultures from [facility]. But if the patient remains a febrile otherwise normal labs and no signs of systemic infection will discontinue these after this dose. 2. Postoperative left total knee day 4. Appearance of the knee looks as a typical postoperative knee there is moderate swelling and ecchymosis there is no erythema. The wound is well sealed. The patient demonstrates flexion to 90? with minimal discomfort and does not have the appearance of an acutely infected knee although very early stages would be difficult to rule out this is unlikely. Again we will follow up on any additional labs that were previously drawn at [facility]. His labs at this hospital are normal except for a very slightly elevated procalcitonin at 0.92 but the patient is otherwise stable vital signs and does not appear systemically ill. Do not feel with the appearance of the knee on examination today that this warrants aspiration or surgery. But will monitor with close follow-up. This is been discussed with op erating surgeon Dr. Hernandez 3. Constipation. The patient did finally have a bowel movement at [facility] and feels better after this. We will start him on daily MiraLax until his bowel movements are more regular and try to limit narcotic pain medication. Will also have Colace 100 b.i.d. 4. DVT prophylaxis continue with 81 mg aspirin b.i.d. COVID-19 COVID-19 status: Negative Time Spent With Patient Time with patient: less than 30 minutes Critical Care time: I spent a total of [] minutes of critical care time on this patient's care today; this time is exclusive of procedural time. Quality VTE Deep Vein Thrombosis/Pulmonary Embolism Present on Admission: No
[2021-05-09] MEDS: VANCOMYCIN 1,000 MG/200 ML PIGGYBACK 200 MG IV (08:05)
[2021-05-09 09:00] VITALS: BP 113/69; PULSE 73; RESP 20; TEMP 37.1; O2SAT 95
--- NOTE | 2021-05-09 11:32 | PM.DS.1 ---
History of Present Illness History of Present Illness Chief complaint: left knee infection Narrative: Dr. Gonzalez's previous H&P from today: Patient is a 75-year-old male status post a left total knee arthroplasty on 05/05/[address] Hernandez.? Was discharged from the hospital uneventfully on 05/06/2021.? On 05/08/2021 his called the office the complaint of constipation recommended to obtain a laxative.? On the evening of 05/08/2021 they called back a taken if temperature at home was 102 and the patient complained chills or feeling ?cold? and could not get warm.? They presented to [facility] Emergency Room where labs were drawn which were within normal limits patient was not febrile at [facility].? He did have blood cultures drawn and a urinalysis and culture that I do not have the results from.? He did receive a dose of vancomycin.? Per report patient also complained of knee pain and the emergency room physicians at [facility] felt that the knee was infected related to me cellulitis and wound infection.? 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 To rule out postoperative infection the patient was transferred to [facility].? The patient States to me this morning he has not had any more chills once he got to the hospital and got a warm blanket he was able to get warm.? Does complain of some knee soreness but no pain at rest.? He has not been febrile at [facility] either.? He has not had any Tylenol either.? He does state he had a bowel movement [facility] and no longer feels the urge to have a bowel movement. Discharge Providers Provider Date of admission: 05/08/21 22:28 Discharge Date: 05/09/21 Primary care physician: Jimbo Eubanks MD Consults: 05/09/21 07:01 Consult to Physical Therapy Evaluate & Treat Comment: Physician Instructions: postop TKA protocol Discharge provider: Harmony Rhodes PA-C Summary Hospital Course Discharge Diagnosis: Constipation Stable status post left total knee arthroplasty Hospital Course: Patient is a 75-year-old male status post a left total knee arthroplasty on 05/05/[address] Hernandez.? Was discharged from the hospital uneventfully on 05/06/2021.? On 05/08/2021 his called the office the complaint of constipation recommended to obtain a laxative.? On the evening of 05/08/2021 they called back a taken if temperature at home was 102 and the patient complained chills or feeling ?cold? and could not get warm.? They presented to [facility] Emergency Room where labs were drawn which were within normal limits patient was not febrile at [facility].? He did have blood cultures drawn and a urinalysis and culture that I do not have the results from.? He did receive a dose of vancomycin.? Per report patient also complained of knee pain and the emergency room physicians at [facility] felt that the knee was infected related to me cellulitis and wound infection.? 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 To rule out postoperative infection the patient was transferred to [facility].? The patient States to me this morning he has not had any more chills once he got to the hospital and got a warm blanket he was able to get warm.? Does complain of some knee soreness but no pain at rest.? He has not been febrile at [facility] either.? He has not had any Tylenol either.? He does state he had a bowel movement [facility] and no longer feels the urge to have a bowel movement. Status at Discharge Cognitive/behavioral status at discharge: oriented Functional status at discharge: uses cane/walker Overall status at discharge: patient is progressing back to baseline Exam Vital Signs (past 8 hours): - 05/09/21 03:45 05/09/21 09:00 Temperature 97.7 F 98.8 F Pulse Rate 78 73 Respiratory Rate 16 20 Blood Pressure 115/69 113/69 Pulse Oximetry 96 95 Oxygen Delivery Method Room Air Oxygen Flow Rate 0 Narrative Exam Narrative: Please refer to Dr. Gonzalez's exam from today Objective Labs Result Diagrams: 05/09/21 04:30 05/09/21 04:30 Labs: Laboratory Results - last 24 hr 05/09/21 05/09/21 05/09/21 04:30 04:30 04:30 WBC 8.2 RBC 3.31 L Hgb 10.3 L Hct 30.4 L MCV 92.1 MCH 31.3 MCHC 34.0 RDW 13.2 Plt Count 152 Neut % (Auto) 52.2 Lymph % (Auto) 38.2 Edwards % (Auto) 8.2 Eos % (Auto) 1.1 L Baso % (Auto) 0.3 Neut # (Auto) 4300 Lymph # (Auto) 3100 Edwards # (Auto) 700 Eos # (Auto) 100 Baso # (Auto) 0 Sodium 137 Potassium 4.2 Chloride 107 Carbon Dioxide 28 BUN 17 Creatinine 0.77 Estimated GFR > 60.0 BUN/Creatinine Ratio 22.1 H Glucose 106 Calcium 8.4 Total Bilirubin 0.7 AST 56 ALT 40 Alkaline Phosphatase 80 Total Protein 5.8 L Albumin 3.3 L Globulin 2.5 Albumin/Globulin Ratio 1.3 Procalcitonin 0.92 H PFSH Medical History Compression fracture Hearing impaired HLD (hyperlipidemia) HTN (hypertension) Lower back pain Osteoarthritis Surgical History History of carpal tunnel surgery of right wrist History of cataract surgery History of surgery History of surgery History of vasectomy Hx of left inguinal hernia repair Hx of nasal septoplasty Hx of right inguinal hernia repair Hx of tonsillectomy Social History household members: spouse Smoking Status: Never smoker alcohol intake: current Discharge Assessment & Plan Assessment and Plan Assessment: Stable status post left total knee arthroplasty, no evidence of infection Constipation Plan of Treatment: Per Dr. Dow, the patient needs an appointment Dr. Hernandez in the next 3-7 days for a postoperative visit Continue with Tylenol and try to limit narcotic pain medication Use MiraLax as needed for constipation Continue with physical therapy as planned Discharge home today Discharge Plan Discharge Plan Patient Disposition: Home Discharge orders & Medications Prescriptions: New polyethylene glycol 3350 17 gram Powder In Packet See Rx Instructions .ROUTE .COMPLEX Qty: 30 RF: 0 Continued losartan 50 mg Tablet 50 mg PO DAILY RF: 0 pravastatin 40 mg Tablet 40 mg PO DAILY RF: 0 vitamins A,C,L-tvnp-xruism 7,160 unit- 113 mg-100 unit Tablet 1 tab PO DAILY RF: 0 acetaminophen 500 mg capsule 500 mg PO Q4HR MDD 6 tabs/day Qty: 90 RF: 0 aspirin 81 mg Tablet,Delayed Release (Dr/Ec) 81 mg PO BID PRN (Reason: prevent blood clots) 45 Days Qty: 90 RF: 0 docusate sodium [DOK] 100 mg Capsule 100 mg PO BID PRN (Reason: constipation from narcotic pain meds) Qty: 30 RF: 0 oxycodone 5 mg Tablet 5 mg PO Q3HR PRN (Reason: Pain, Moderate (4-6)-severe (7-10)) Qty: 42 RF: 0 meloxicam 15 mg Tablet 15 mg PO DAILY PRN (Reason: inflammation/pain) Qty: 0 RF: 0 Follow up/Referrals: Franklyn Hernandez MD [Physician] - (Follow-up with Dr. Hernandez next week, rather than your regularly scheduled postoperative visit) Jimbo Eubanks MD [Primary Care Provider] - Diet/Activity/Treatments Diet: Diet as Tolerated and Regular Activity: Continue with physical therapy as planned Cold/Heat Therapy: Use ice as needed for pain Other treatments: Continue with Tylenol, try to limit narcotic pain medication due to constipation Skin/Wound/Dressing Care Report to your healthcare provider any signs of infection, such as:: chills, fever, night sweats, unusual drainage and unusual redness Dressing: Please contact the office if dressing becomes wet, saturated, soiled Visit Report/Discharge Packet Instructions: DI for Prescription Opioid Use Discharge Data Primary Care Provider: Jimbo Eubanks Quality VTE Deep Vein Thrombosis/Pulmonary Embolism Present on Admission: No
--- NOTE | 2021-05-09 12:51 | PT-IP ANOTE ---
checked on pt and pt with spouse and nurse in room. pt is receiving d/c instructions from the nurse. informed regarding PT order and spouse stated that they are ok with pt going home and no concerns. stated that pt has been receiving PT and was able to do stair climbing without any problems. Pt and spouse refuse PT here in the hospital.
--- NOTE | 2021-05-09 14:11 | PC.NURSE ---
Report received, care assumed 0730. Pt A&Ox3. Denies pain. VSS. Transferring and ambulating appropriately with use of walker; standby assist. No signs or symptoms of infection at this time. Called [facility] to obtain blood culture results from ED. No preliminary results yet, Dr. Gonzalez informed. Discharge orders written. Discharge instructions given. Pt and spouse verbalize understanding, no concerns at this time. Discharged to home via private vehicle at 1242.
--- NOTE | 2021-05-09 16:41 | CM.DPNOTE ---
DC Note reviewed chart, patient here for L TKA and DC 8.., home w/spouse and no needs checked in w/RN as patient was getting ready for DC today; no needs identified from this PROGRAM REVIEW DIRECTOR. Patient will DC w/spouse, close outpatient f/u recommended. EMMA
== END 2021-05-09 12:42 | disposition home or self-care (01) ==
PROVIDERS: Admitting Provider Orthopaedic Surgery Foot and Ankle Surgery; PCP Family Medicine; Referring Provider Orthopaedic Surgery Foot and Ankle Surgery; Visit Provider Orthopaedic Surgery Foot and Ankle Surgery
DX: M25.562 Pain in left knee (principal); R50.9 Fever, unspecified; K59.00 Constipation, unspecified; Z96.652 Presence of left artificial knee joint; I10 Essential (primary) hypertension; E78.5 Hyperlipidemia, unspecified
CPT/HCPCS: 36415; 73560; 80053; 84145; 85014; 85018; 85025; 96365; 97116; 97161; G0378; C9290; G0379; J0171; J0690; J1100; J2270; J2405; J2704; J3010

== ENCOUNTER → 2023-05-12 08:57 | Outpatient (CLI) | payer MEDICARE, OTHER, SELFPAY ==
[2023-05-12 10:04] LABS: Hemoglobin A1C% w Est Avg Glu 5.5 % (4.0-6.0)
[2023-05-12 10:07] LABS: Hematocrit 42.9 % (41-53); Hemoglobin 14.3 g/dL (13.5-17.5); Mean Corpuscular HGB Conc 33.3 % (30-36); Mean Corpuscular Hemoglobin 30.9 PG (26-34); Platelet Count 155 X10^3/uL (150-400); Red Blood Cell Count 4.62 X10^6/uL (4.5-5.9); Red Cell Distribution Width 13.5 % (11.6-14.8); White Blood Cell Count 7.3 X10^3/uL (4.5-11.0)
[2023-05-12 10:10] LABS: Add Manual Diff / Slide Review YES; BUN Creatinine Ratio 34.9 (6-22); Blood Urea Nitrogen 29 mg/dL (9-20); Calcium 9.3 mg/dL (8.4-10.2); Carbon Dioxide 27 mmol/L (22-32); Chloride 104 mmol/L (98-107); Estimated Glomerular Filt Rate > 60 mL/min (>60); Glucose 92 mg/dL (80-110); HEMOLYSIS < 15 (0-50); Potassium 4.6 mmol/L (3.4-5.1); Sodium 139 mmol/L (137-145)
[2023-05-12 10:24] LABS: Neutrophils Absolute Manual 3066 /uL (3000-5900); RBC Morphology Normal Morphology; Total Cells Counted 100
[2023-05-12 11:17] LABS: Appearance Urine UA CLEAR; Bilirubin Urine UA NEGATIVE (NEGATIVE); Color Urine UA YELLOW; Glucose Urine UA NEGATIVE (Negative); Ketones Urine UA NEGATIVE (NEGATIVE); Leukocyte Esterase Urine UA 1+ (NEGATIVE); Nitrite Urine UA NEGATIVE (Negative); Occult Blood Urine UA NEGATIVE (Negative); Protein Urine UA NEGATIVE (Negative); Specific Gravity Urine UA <=1.005 (1.000-1.035); Urobilinogen Urine UA 0.2 E.U./dL (0.2)
[2023-05-12 11:22] LABS: Bacteria Urine None Seen; Culture Indicated Urine Specimen Cultured; RBC Urine None Seen (0-5/HPF); Squamous Epithelial Cell Urine None Seen (0-5/HPF); WBC Urine 1-5/HPF (0-5/HPF)
== END ==
PROVIDERS: PCP Family Medicine; Referring Provider Orthopaedic Surgery; Visit Provider Orthopaedic Surgery
DX: Z01.818 Encounter for other preprocedural examination (principal); R73.9 Hyperglycemia, unspecified; Z01.812 Encounter for preprocedural laboratory examination; N39.0 Urinary tract infection, site not specified
CPT/HCPCS: 36415; 80048; 81001; 83036; 85007; 85025; 87086; 93005; 93010

== ENCOUNTER 2023-07-07 12:41 | Day surgery (SDC) | payer MEDICARE, OTHER, SELFPAY ==
[2023-07-01 08:49] VITALS: BMI 25.2
[2023-07-07] VITALS (9 sets, daily range): BP systolic 112–140; BP diastolic 48–90; PULSE 57–72; RESP 14–18; TEMP 35.9–37; O2SAT 93–100; BMI 24.3
--- NOTE | 2023-07-07 06:00 | DI.RAD.S_ITS ---
PROCEDURE: XR KNEE RT 1TO2V INDICATIONS: TKA TECHNIQUE: 2 view(s) of the knee acquired. COMPARISON: [facility], CR, XR KNEE 4+ VIEWS RIGHT, 04/16/2023, 11:53. [facility], CR, XR KNEE LT 1TO2V, 05/05/2021, 11:58. FINDINGS: Bones: Patient is status post knee joint arthroplasty. Hardware components are in expected positions. Visualized bony structures are intact. Soft tissues: Overlying postoperative changes are noted. IMPRESSION: Expected appearance of knee arthroplasty. Dictated by: Chrissy Krishnamurthy M.D. on 07/07/2023 at 17:48 Approved by: Chrissy Krishnamurthy M.D. on 07/07/2023 at 17:48
[2023-07-07] MEDS: CELECOXIB 200 MG CAPSULE PO (13:19)
[2023-07-07] MEDS: ACETAMINOPHEN 325 MG TABLET 975 MG PO (13:19)
[2023-07-07] MEDS: LACTATED RINGERS 1,000 ML 42 ML IV (13:19)
[2023-07-07] MEDS: VANCOMYCIN 1,000 MG/200 ML PIGGYBACK 200 MG IV (13:45)
--- NOTE | 2023-07-07 14:32 | SUR.PREOP ---
Block start time 1426. Monitoring initiated and maintained throughout procedure. Time out performed for right aducter canal block.Oxygen and medications given per anesthesiologist instructions. Patient remained stable throughout procedure, no adverse reactions noted. Block end time 1430.
--- NOTE | 2023-07-07 14:36 | P.OP_ITS ---
Operative Date/Time/Diagnoses Date of procedure: 07/07/23 Time of procedure: 14:36 Pre-op diagnosis: Right knee osteoarthritis severe medial compartment Post-op diagnosis: same Procedure & Clinicians Procedure: Right total knee arthroplasty Same procedure as scheduled: Yes Indications: The patient has had progressively worsening right knee pain with radiographic changes consistent with arthritis. Non-operative management has failed and the patient has requested total knee replacement. The risks, benefits and alternatives to surgery were discussed with the patient prior to proceeding. Risks discussed included, but were not limited to, failure to relieve pain, stiffness, infection, nerve damage, deep venous thrombosis, pulmonary embolism, stroke, coma, heart attack, permanent paralysis and , as well as the potential need for eventual revision of the prosthetic. Surgeon: Suzette Henley Band Aid Machine Operator: Corey Penn Anesthesia Type: General and Peripheral nerve block Operative Notes Findings: Severe right knee osteoarthritis, adequate stability, adequate bone Closure Type: primary Specimen(s): none sent Prosthetic devices, grafts, tissues, transplants, or devices: [employer]hew journey BCS 2 size 6 femur, size 5 tibia, +9 poly, 3 35 oval patella Estimated Blood Loss (mL): 250 Blood products transfused: none Tourniquet time (min): 82 Procedure in detail: The patient was seen in the pre-operative area, where the patient identified the right knee as the operative site and this was marked with my initials. The patient received pre-operative antibiotics, and was taken to the operating room and placed on the operative table in the supine position. After satisfactory anesthesia, a forepart reducer out was performed. The right leg was encircled with a tourniquet about the proximal thigh, and the leg was prepared from the toes to the tourniquet with ChloroPrep in the usual fashion and draped through sterile drapes. The leg was elevated and exsanguinated with Eschmark bandage and the tourniquet inflated to [250] mmHg pressure. PA was used during the procedure was essential for intraoperative retraction safe implantation of the components. The knee was approached through an approximately 18 cm incision centered over the patella and carried into the knee through a medial parapatellar arthrotomy. A portion of the medial and lateral meniscus was resected. Soft tissue was carefully mobilized around the patella the patella was measured with a caliper. Bone was resected from the patella and the patellar height was reconstituted with up an appropriate sized patellar component. A cover was then placed on the patella. A small amount of additional medial and lateral meniscus was resected. The distal femur was cut at 5?. A [+2] cut was used. It looked like an appropriate distal femoral cut and the cut was made without difficulty. An extramedullary guide was used for the tibial cut. 10 mm was resected off the least affected side.The tibia was prepared. The rotation was assessed. The patient was placed in extension residual medial and lateral meniscus as well as any residual bone was carefully resected. [No] additional tibia was resected. Hemostasis was achieved especially posteriorly. Additional local was injected into the posterior capsule. The extension gap was assessed and additional releases for gap balancing were performed as necessary. It was checked with the gap tearer. The femoral component was trial was placed and the notch was finished. The rotation was assessed and the appropriate size femoral guide was placed on the distal femur and finishing cuts were made. There is no evidence of notching. The anterior, posterior and chamfer cuts were then made. The posterior osteophytes and soft tissues were then removed. The posterior capsule was injected with part of a mixture of 60 ml 0.25% Marcaine mixed with 20 ml Exparel for post operative pain control. The remainder of this mixture was injected into the capsule and subcutaneous tissues during cement curing.l tibial and femoral components were then placed and the knee placed through a range of motion. Range of motion was [0-130], with good stability throughout the range. The trials were then removed, and the tibia was finished. The bone was prepared with pulsatile lavage, and dried with a sponge. Cement was applied and the final prosthetics placed. Excess cement was removed during and after cement curing. A brief Betadine soak was performed. After confirming there was no extruded cement posteriorly, the final tibial insert was placed. The knee was copiously irrigated and the tourniquet deflated. Hemostasis was obtained with the Bovie cautery. The capsule was closed with interrupted nonabsorbable suture. The subcutaneous layer was closed with barbed sutures, and the skin with a running 3-0 V-Lock suture and Surgical glue. An Aquacel Ag dressing was applied and the patient was taken to recovery having tolerated the procedure well. Complications: none Post-operative Condition: stable Disposition: observation Plan for aftercare: The patient will be maintained on a standard total knee replacement protocol with weight bearing as tolerated. The patient will receive aspirin and sequential compression devices for DVT prophylaxis. The patient will be discharged home when safe for the home environment.
--- NOTE | 2023-07-07 14:36 | PM.PREOP ---
Pre-operative Note Interval Note History & Physical reviewed/Exam performed by Physician: Yes Changes to H&P: No
[2023-07-07] MEDS: CEFAZOLIN 2 GM/100 ML PREMIX 100 ML IV (15:00)
[2023-07-07] MEDS: TRANEXAMIC ACID 1,000 MG VIAL 1000 MG INJ ×2 (15:28→16:54)
[2023-07-07] MEDS: ACETAMINOPHEN 325 MG TABLET 650 MG PO (18:31)
[2023-07-07] MEDS: IBUPROFEN 400 MG TABLET PO (18:31)
--- NOTE | 2023-07-07 18:42 | PC.NURSE ---
Pt to room 214 via bed from PACU. Pt is awake, alert, and oriented x 3. Denies pain, nausea, or shortness of breath. Spouse at the bedside. IVF infusing as ordered. SCD's on and running. Bed alarm on for safety. Pt agrees to not get up without assistance. Pt oriented to room, call light, bed controls, and tv controls. Pt now eating a snack and denies needs at this time.
[2023-07-07] MEDS: ASPIRIN EC 81 MG TABLET PO (20:33)
[2023-07-07] MEDS: DOCUSATE 100 MG CAPSULE PO (20:33)
[2023-07-07] MEDS: OXYCODONE IR 5 MG TABLET PO (20:33)
[2023-07-07] MEDS: LACTATED RINGERS 1,000 ML 100 ML IV (20:34)
[2023-07-08] VITALS: BP 133/80; PULSE 69; RESP 18; TEMP 36.4; O2SAT 98
[2023-07-08] MEDS: ACETAMINOPHEN 325 MG TABLET 650 MG PO ×3 (00:09→12:41)
[2023-07-08] MEDS: CEFAZOLIN 2 GM/100 ML PREMIX 100 ML IV ×2 (00:10→06:35)
[2023-07-08 02:17] VITALS: BP 130/74; PULSE 74; RESP 18; TEMP 37.1; O2SAT 96
[2023-07-08 04:29] VITALS: BP 130/74; PULSE 74; RESP 18; TEMP 36.5; O2SAT 94
[2023-07-08] MEDS: OXYCODONE IR 5 MG TABLET PO ×3 (05:13→12:42)
[2023-07-08 06:00] VITALS: BP 132/68; PULSE 88; RESP 17; TEMP 37; O2SAT 95
[2023-07-08 06:54] LABS: Hematocrit 33.2 % (41-53); Hemoglobin 11.2 g/dL (13.5-17.5)
[2023-07-08 08:00] VITALS: BP 112/56; PULSE 69; RESP 16; TEMP 36.2; O2SAT 95
[2023-07-08 08:33] VITALS: BP 112/56; PULSE 69
[2023-07-08] MEDS: ATORVASTATIN 20 MG TABLET PO (08:33)
[2023-07-08] MEDS: LOSARTAN 50 MG TABLET PO (08:33)
[2023-07-08] MEDS: DOCUSATE 100 MG CAPSULE PO (08:33)
[2023-07-08] MEDS: ASPIRIN EC 81 MG TABLET PO (08:33)
[2023-07-08] MEDS: MULTIVITAMIN 1 TABLET 1 TAB PO (08:34)
--- NOTE | 2023-07-08 09:47 | OT.IP.EVAL ---
Current Diagnoses Unilateral primary osteoarthritis, right knee (07/07/23) Surgery Performed Operation Date: 07/07/23 14:45 Actual Procedures p Total Knee Arthroplasty(Right) - Suzette Henley MD Past Medical History (Last Updated 07/01/23 @ 09:13 by Marika Kumar, RN) Compression fracture Hearing impaired History of COVID-19 (2021) HLD (hyperlipidemia) HTN (hypertension) Lower back pain Osteoarthritis Surgical History (Last Updated 07/01/23 @ 08:53 by Marika Kumar, RN) History of carpal tunnel surgery of right wrist History of cataract surgery History of surgery History of surgery History of total left knee replacement (05/05/21) History of vasectomy Hx of left inguinal hernia repair Hx of nasal septoplasty Hx of right inguinal hernia repair Hx of tonsillectomy Occupational Therapy Inpatient Evaluation/Re-Eval M1 PT/OT-IP Prior Functional Status Start: 07/08/23 09:49 Freq: NEEDED Status: Active Protocol: Document 07/08/23 09:17 [facility] (Rec: 07/08/23 09:59 [facility] [id number]) Medical Review Prior Functional Status Communication Independent Mobility and Gait Independent without a device but had pain with uneven ground and difficulty to go down steps. Activities of Daily Living and IADL's Pt able to do with pain. Social History Household Members spouse Living Arrangements House Number of Floors (Floors) 3 or More Floors Number of Stairs To Enter/Railing? 4 steps with right rail to enter. Pt states to sleep down on the main floor. Home Environment High Toilet,Walk in Shower Home Equipment Front Wheel Walker,Grab Bars In Shower Additional Social History Comment Pt states to get out of the left side of the bed as closer to the bathroom. M2 OT-IP Current Condition Start: 07/08/23 09:49 Freq: Status: Active Protocol: Document 07/08/23 09:17 [facility] (Rec: 07/08/23 09:59 [facility] [id number]) Occupational Therapy Current Condition Current Condition Evaluation Date 07/08/23 Treatment Diagnosis S/P R TKA Weight Bearing Status Weight Bearing Status Weight Bear as Tolerated M3 OT- IP Subjective and Pain Start: 07/08/23 09:49 Freq: Status: Active Protocol: Document 07/08/23 09:17 [facility] (Rec: 07/08/23 09:59 [facility] [id number]) OT- Subjective Occupational Therapy Visit Type Type Initial Evaluation Visit Start Time 09:17 Visit Stop Time 09:47 Total Visit Minutes 30 Occupational Therapy Visit Comments Patient Comments Pt agreed to get up to brush his teeth. Patient/Caregiver Goals To go home. OT Pain Assessment Pain When Pain Assessed At Rest Pain Present Pain Present Pain Reported Location left knee Intensity 2 Scale Used Numeric (0 - 10) M4 OT- IP ADL's Start: 07/08/23 09:49 Freq: Status: Active Protocol: Document 07/08/23 09:17 [facility] (Rec: 07/08/23 09:59 [facility] [id number]) OT KRP-[id number]-Cnizphm General Evaluation Self-Feeding Ability Independent OT ADL-Grooming General Evaluation Grooming Ability Independent OT ADL-Oral Care General Eval Oral Care Ability Independent Areas of Assistance Retrieving/Set-Up of Items OT ADL-Dressing General Eval Lower Body Dressing Ability Standby Assistance Comments OT Dressing Comments Pt able to bend over to jackeline/ doff his socks. Educated best to jackeline his RLE first and take out last. OT ADL-Toileting General Evaluation Toileting Ability Independent Devices Toileting Assistive Devices Urinal Comments OT Toileting Comments Pt independently using the urinal in the room. Pt aware can use the fww over the toilet while urinating. Pt to take the urinal home. OT ADL-Bathing Comments OT Bathing Comments Not performed. Suggested pt have a shower chair to use at home. Pt states will consider it. M5 OT- IP IADL's Start: 07/08/23 09:49 Freq: Status: Active Protocol: Document 07/08/23 09:17 [facility] (Rec: 07/08/23 09:59 [facility] [id number]) OT-Instrumental Activities of Daily Living Deficits IADL Deficits Identified Deficits Home Safety Awareness Awareness of Need for Assistance at Home Good Awareness Ability to Problem Solve Emergency Able to Problem Solve Situations Medication Management Medication Management Comments Pt's can assist if needed . Money Management Money Management Caregiver Provides Assistance Meal Preparation Meal Preparation Caregiver Provides Assist Camouflage Specialist Camouflage Specialist Caregiver Provides Assist M6 OT- IP Functional Cognition Start: 07/08/23 09:49 Freq: Status: Active Protocol: Document 07/08/23 09:17 [facility] (Rec: 07/08/23 09:59 [facility] [id number]) Cognitive Factors Limiting Selfcare Function Cognitive Ability Level of Alertness Alert Patient Orientation Name,Age,Birthday,Month,Date, Year,Day of Week,Place, Situation Attention Span Ability Capable of Focused Attention, Capable of Sustained Attention Ability to Follow Commands Able to Follow Multi-Step Commands Memory Description No Deficits Noted Safety Awareness No Deficits Noted Problem Solving Ability No deficits Noted Cognitive Comments Cognitive Assessment Comments Intact OT- Vision and Hearing OT- Hearing Assessment OT- Hearing Assessment Hearing Impaired,Use of Hearing Aids OT- Vision Assessment Visual Acuity Glasses For Reading Visual Attentiveness WFL Occular Pursuits WFL M7 OT- IP Mobility and Balance Start: 07/08/23 09:49 Freq: Status: Active Protocol: Document 07/08/23 09:17 [facility] (Rec: 07/08/23 09:59 [facility] [id number]) OT- Bed Mobility Assessment Supine to Sit Supine to Sit Assist Standby Assistance OT-Transfer Assessment Sit to and From Stand Sit to and from Stand Standby Assistance Transfers Transfer Ability Standby Assistance Technique Transfer Destination Bed,Chair Transfer Technique Stand Step Pivot Devices Transfer Assistive Devices Gait Belt,Front Wheeled Walker Comments Mobility Comments Pt needing initial vc to push up from the bed to stand and then able to walk with the FWW SBA to the sink and then to the recliner. OT- Balance Assessment Sitting Balance and Reactions Static Sitting Balance Ability Normal Dynamic Sitting Balance Ability Normal Standing Balance and Reactions Static Standing Balance Ability Good Dynamic Standing Balance Ability Fair M8 OT- IP Objective Assessments Start: 07/08/23 09:49 Freq: Status: Active Protocol: Document 07/08/23 09:17 [facility] (Rec: 07/08/23 09:59 [facility] [id number]) OT Gross Range of Motion Upper Extremity Range of Motion Assessment Within Functional Limits OT Strength Upper Extremity Strength Assessment Within Functional Limits M9 OT- IP Assessment and Plan Start: 07/08/23 09:49 Freq: Status: Active Protocol: Document 07/08/23 09:17 [facility] (Rec: 07/08/23 09:59 [facility] [id number]) OT Summary Assessment and Plan Potential Rehabilitation Potential Excellent Analytic Complexity at Evaluation Low Summary OT Impairments Pain,Balance,Functional Mobility,Bathing,Toilet Transfers,Shower Transfers Progress Towards Goals Progressing Toward Goals Assessment Summary Pt low complexity and main barriers are pain and steps. Pt has a supportive to assist at home. Pt to consider getting a shower chair for showers. Pt to go home with his and have outpt PT when medically stable. Goals Dressing Goal Independent Toileting Goal Independent Bathing Goal Independent Toilet Transfer Goal Independent Shower Transfer Goal Independent Days to Meet Goals 5 Frequency of Treatment Frequency Of Treatment Once a Day Treatment Plan OT Treatment Plan ADL Training,Functional Mobility,Patient/Family Education,Discharge Planning Discharge Recommendations OT Discharge Recommendations Home with Assistance, Outpatient PT Home Equipment Needs shower chair Transportation Needs at Discharge Private Vehicle
--- NOTE | 2023-07-08 10:27 | PT.IIE ---
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) History of vasectomy Hx of left inguinal hernia repair Hx of nasal septoplasty Hx of right inguinal hernia repair Hx of tonsillectomy Medical History (Last Updated 07/01/23 @ 09:13 by Marika Kumar RN) Compression fracture Hearing impaired History of COVID-19 (2021) HLD (hyperlipidemia) HTN (hypertension) Lower back pain Osteoarthritis Physical Therapy Inpatient Evaluation/Re-Eval M1 PT/OT-IP Prior Functional Status Start: 07/08/23 09:49 Freq: NEEDED Status: Active Protocol: Document 07/08/23 12:57 AB (Rec: 07/08/23 13:08 AB [id number]) Medical Review Prior Functional Status Medical History Reviewed Yes Communication Independent Mobility and Gait Independent without a device but had pain with uneven ground and diffculty to go down steps. Activities of Daily Living and IADL's Pt able to do with pain. Social History Household Members spouse Living Arrangements House Number of Floors (Floors) 3 or More Floors Number of Stairs To Enter/Railing? 4 GONZALEZ right hand rail ascending Home Environment High Toilet,Walk in Shower Home Equipment Front Wheel Walker,Grab Bars In Shower Additional Social History Comment Pt reports he will be staying on main floor, and can assist as needed. M1 PT/OT-IP Prior Functional Status Start: 07/08/23 12:57 Freq: NEEDED Status: Active Protocol: Document 07/08/23 12:57 AB (Rec: 07/08/23 13:08 AB [id number]) Medical Review Prior Functional Status Medical History Reviewed Yes Communication Independent Mobility and Gait Independent without a device but had pain with uneven ground and diffculty to go down steps. Activities of Daily Living and IADL's Pt able to do with pain. Social History Household Members spouse Living Arrangements House Number of Floors (Floors) 3 or More Floors Number of Stairs To Enter/Railing? 4 GONZALEZ right hand rail ascending Home Environment High Toilet,Walk in Shower Home Equipment Front Wheel Walker,Grab Bars In Shower Additional Social History Comment Pt reports he will be staying on main floor, and can assist as needed. M2 PT-IP Current Condition Start: 07/08/23 12:57 Freq: NEEDED Status: Active Protocol: Document 07/08/23 12:57 AB (Rec: 07/08/23 13:08 AB [id number]) Physical Therapy Current Condition Current Condition Evaluation Date 07/08/23 Treatment Diagnosis s/p right TKA Onset Date 07/07/23 M3 PT-IP Subjective Start: 07/08/23 12:57 Freq: NEEDED Status: Active Protocol: Document 07/08/23 12:57 AB (Rec: 07/08/23 13:08 AB [id number]) Subjective Physical Therapy Visit Type Type Initial Evaluation Visit Start Time 10:07 Visit Stop Time 10:27 Total Visit Minutes 20 Physical Therapy Visit Comments Patient Comments Pt presents seated in chair with in room, and is agreeable to PT evaluation. Therapy Pain Assessment Pain When Pain Assessed At Rest Pain Present Pain Present Denied Pain M4 PT-IP Mobility and Gait Start: 07/08/23 12:57 Freq: NEEDED Status: Active Protocol: Document 07/08/23 12:57 AB (Rec: 07/08/23 13:08 AB [id number]) PT-Bed Mobility Assessment Rolling Type of Rolling Bilateral Level of Assist Independent Supine to Sit Supine to Sit Independent Sit to Supine Sit to Supine Independent Scooting Scooting to Edge of Bed Independent PT-Transfer Assessment Sit to and From Stand Sit to and from Stand Standby Assistance,Use of Upper Extremities Equipment Transfer Assistive Device Gait Belt Transfers Transfer Destination Bed,Chair Transfer Technique Stand Step Pivot Transfer Ability Level of Assist Standby Assistance,Use of Upper Extremities Comments Mobility Comments The pt is able to perform STS from chair with use of UEs on arm rests with SBA. He denies having any symptoms once standing. Pt then ambulated and performed stairs as below. Upon returning to room, pt performs bed mobility with independence, and transfers from bed to chair with stand step pivot technique and SBA, no FWW needed for this transfer. Once back in chair, all needs were met, call light is in reach and is in room. RN was notified of findings. Gait Assessment Gait Gait Assistance Required: Standby Assistance Distance (Feet) 300 Assistive Devices Assistive Device Gait Belt,Front Wheeled Walker Gait Deviations General Gait Pattern Antalgic,Decreased Stride Length Factors Limiting Gait Function Factors Limiting Gait Function Decreased Activity Tolerance, Decreased Strength,Limited Range of Motion,Pain Comments Gait Comments Gait deviations are consistent with surgical procedure. Pt ambulates 300ft with FWW and SBA, and does not show signs of instability while ambulating. Stair Climbing Assessment Evaluation Level of Assist On Stairs Standby Assistance Devices Stair Climbing Assistive Devices Right Railing Technique/Endurance Stair Climbing Direction Ascend and Descend Stair Climbing Technique Step to Step Number of Steps Climbed 3 Query Text: Stair Climbing Set # Repetitions (reps) 2 Comments Stair Climbing Comments Pt is able to ascend/descend first set with bilateral hand rails, then performs second set using right hand rail only . He ascends leading with LLE, and descend leading with RLE. PT-Balance Assessment Sitting Balance and Reactions Static Sitting Balance Ability Normal Dynamic Sitting Balance Ability Normal Standing Balance and Reactions Static Standing Balance Ability Normal Dynamic Standing Balance Ability Good Device Used FWW M5 PT-IP Objective Assessments Start: 07/08/23 12:57 Freq: NEEDED Status: Active Protocol: Document 07/08/23 12:57 AB (Rec: 07/08/23 13:08 AB [id number]) Orientation Orientation/Cognition Level of Alertness Alert Orientation Name,Age,Birthday,Month,Date, Year,Day of Week,Place, Situation Language Function Ability No Deficits Noted Safety Awareness Understands Safety Issues Memory Description No Deficits Noted Gross Range of Motion Upper Extremity ROM Assessment Within Functional Limits Lower Extremity ROM Assessment Right Impaired Strength Upper Extremity Strength Assessment Within Functional Limits Lower Extremity Strength Assessment Right Impaired M6 PT-IP Treatment Start: 07/08/23 12:57 Freq: NEEDED Status: Active Protocol: Document 07/08/23 12:57 AB (Rec: 07/08/23 13:08 AB [id number]) Physical Therapy Treatment Education Education Provided Precautions,Weight Bearing Status,Post-Op Packet,Safety Brace Education Patient,Caregiver M7 PT-IP Assessment and Plan Start: 07/08/23 12:57 Freq: NEEDED Status: Active Protocol: Document 07/08/23 12:57 AB (Rec: 07/08/23 13:08 AB [id number]) PT Summary Assessment and Plan Potential Rehabilitation Potential Good Status of Condition at Evaluation Stable Summary Impairments Pain,ROM,Strength,Balance,Bed Mobility,Transfers,Gait, Activity Tolerance Assessment Summary Katty Ramos (Les) is an 78 year old male patient who is s /p right TKA performed on 07/07. The pt shows a high level of function post surgery, as he is able to perform bed mobility with independence, and requires SBA for STS, transfers, ambulation and stairs as detailed above. He is able to ambulate 300ft with FWW, and is able to ascend/ descend 3 steps x2. Based on his current level of function, PT recommends discharge to home with outpatient PT to improve his post surgical outcomes. Goals Bed Mobility Goal Independent Transfer Goal Independent Gait Goal Independent,Front Wheel Walker Gait Distance 500 Other Goals Pt to be able to ambulate 500 with LRAD to show improving activity tolerance. Days to Meet Goals 5 Frequency of Treatment Frequency Of Treatment Twice a Day Treatment Plan Physical Therapy Treatment Plan Bed Mobility Training,Transfer Training,Gait Training, Therapeutic Exercise,Balance Retraining,Post Op Education, Discharge Planning,Hot or Cold Pack,Neuromuscular Re-ed, Coordination Retraining,Manual Therapy Recommendations To Nursing Amount of Assist Needed Standby Assistance Discharge Recommendations PT Discharge Recommendations Home,Outpatient PT Transportation Needs at Discharge Private Vehicle
--- NOTE | 2023-07-08 11:38 | CM.DANOTE ---
Patient is a 77 yo male who was admitted on 07/07/23 for RTKA. Pt has [facility] for insurance and his PCP is Matheus Madrid. EMR was reviewed. Per Ortho, pt tolerated procedure well and medically stable to d/c today after PT. Per PT, recommending safe d/c home with outpt PT. SW met bedside with pt and spouse and explained role and they confirm they live at home in [place] and are both active and independent at baseline. Pt denies any hx of HH or SNF but states he does have a hx of Left TKA in 2020 that became infected and he had to be readmitted to the hospital for IV-Abx. Pt and spouse both drive, but not in the dark, and both feel comfortable with plan of discharge home after lunchtime with spouse to assist and they have outpt PT already set up. Pt does not anticipate any further needs at discharge. Plan: Patient to d/c home via spouse POV after lunch time and outpt f/u with Ortho and outpt PT set up. No further SW needs at this time. SARINA Emery Discharge Planning/Care Management CM Discharge Assessment Start: 07/08/23 11:37 Freq: Status: Active Protocol: Document 07/08/23 11:37 BF (Rec: 07/08/23 11:38 BF [id number]) Discharge Planning Assessment Assigned Rope Making Machine Operator SARINA Castillo DPOA/Assigned Designee Name spouse Emi Contact Information [phone] Advance Directives? No Advance Directives on File No History Provided By Patient,Significant Other, Medical Record Has Patient been admitted in last 30 No days? Prior Living Arrangements House Household Members spouse Type of transporation used prior to Drives own vehicle admit Independent with ADL's Yes Is patient alert and oriented? Yes Caregiver for Another No Community Services used prior to Physical Therapy admission: DME Already Rented / Owned FWW / Walker Patient/Family Preference OP PT Therapy Barriers to Discharge No Discharge Plan Home Community Services Physical Therapy Transportation Arrangement Spouse bedside and planning to transport Referrals Initiated None needed Whiteboard Updated in Patient Room with Yes name and ext. # of Rope Making Machine Operator Review Status In Process Please Provide Date Initial DC 07/08/23 Assessment Was Performed Next Review Type Continued Stay Review Pre-Anesthesia Assessment Start: 07/01/23 08:49 Freq: Status: Active Protocol: Document 07/01/23 08:49 CAB (Rec: 07/01/23 09:17 [facility] [id number]) Pre-Anesthesia Assessment Preferred Name Les Patient Information Reviewed Via Phone Assessment Assessment Completed With Patient Diagnostic Results BMP/CMP,CBC,EKG Comment Labs/EKG @ 05/12/23 Primary Care Provider Matheus Madrid Seen Specialist in Last 12 Months Yes Specialist Seen Orthopedist Primary Language Malian Preferred Language Malian Scientist Propagator Required No Height 170.18 cm Weight 73.028 kg Body Mass Index (BMI) 25.2 Hearing Ability Hearing Impaired,Use of Hearing Aid Visual Assist Glasses Dentition Type Teeth, Natural Present Barriers to Learning Auditory Hx Anesthesia Reactions Yes: Urinary retention s/p spinal, trouble waking up from GA Hx Family Anesthesia Reaction No Hx Malignant Hyperthermia No Hx Blood Transfusions No Hx Blood Transfusion Reaction No Anesthesia Review Requested No Library Clerk No alcohol intake current alcohol intake frequency holidays/special occasions only Smoking Status Never smoker Substance Use Type does not use Pain Present Pain Reported Musculoskeletal Symptoms Abnormal Gait,Back Pain, Difficulty Walking,Joint Pain History of Falling (Recent or History of No ) Patient is completely paralyzed or No completely immobile Mental Status Oriented to own ability Is patient on oxygen? No Does patient have PERDUE/SOB No Hx Sleep Apnea No CPAP/BIPAP use not prescribed Currently Taking a Beta Sandra No Hx Chest Pain No Hx SOB No Hx Syncope or Dizziness No Anti-Coagulant Therapy No Has a Coach Professional Athletes No Cardiac Testing No Hx Pacemaker/ICD No Pacemaker Rep Required? No Diet Type At Home Regular Dysphagia No Chronic UTI No Urinary Catheter Present No Hx Urinary Self Catheterization No Diabetes No HgbA1C 5.5 Date 05/12/23 Hx Drug Resistant Organism No Presence of External or Internal Medical Yes: Left eye, left knee Devices prosthesis Received a COVID vaccine? Yes Received all doses? Yes Marital Status Lives With spouse Current Living Arrangements House Number of Floors (Floors) 3 or More Floors Support System Spouse Does the Patient Have Assistance After Yes Surgery Patient Discharge Plan Description Return Home Comment Pt not advised on length of stay per surgeon Feels Safe in Current Environment Yes Been Physically Hurt or Threatened By a No Person in Current Environment Do you have thoughts of harming yourself None or others? Are you currently considering suicide? No Do you have a plan to hurt yourself or No Plan others? Do You Have Any Spiritual Beliefs That No May Affect Your HC Choices? Do You Have Any Cultural Practices That No May Affect Your HC Choices? Comment Xiang Who Can We Speak to About Patient's Care Family, friends Identifying Code for Release of Patient Declines to issue Information Health Care Proxy/Next of Kin Emi () Health Care Proxy Emergency Contact Name Emi () Emergency Contact Advance Directives? No Power of Local Company Refrigerated Truck Driver No PAC Instructions Durable medical equipment, Medications to take/avoid, Nasal antibiotic,No ETOH/ petroleum product on skin DOS, NPO,Pre-surgical wash,Sensory aids,Sturdy shoes/comfortable clothes,Do not bring valuables and remove jewelry
--- NOTE | 2023-07-08 11:53 | PM.DS.1 ---
History of Present Illness History of Present Illness Date Patient Seen: 07/08/23 Time Patient Seen: 11:00 Chief complaint: Right Total Knee Arthroplasty Narrative: Pt is feeling well. Denies any fever or chills. Ready to go home. Discharge Providers Provider Discharge Date: 07/08/23 Primary care physician: Matheus Madrid DO Consults: 07/07/23 06:00 Consult to Anesthesiology Routine Comment: Consulting Provider: Anesthesiologist Reason for consultation: Regional block for post operative pain control 07/07/23 18:01 Consult to Discharge Planning Routine Comment: Consult to Occupational Therapy Evaluate & Treat Comment: Physician Instructions: Evaluate and treat Consult to Physical Therapy Evaluate & Treat Comment: Physician Instructions: postop TKA protocol Discharge provider: Corey Penn PA-C Summary Hospital Course Discharge Diagnosis: Status post Right total knee arthroplasty Hospital Course: Right total knee arthroplasty Same procedure as scheduled: Yes Indications: The patient has had progressively worsening right knee pain with radiographic changes consistent with arthritis. Non-operative management has failed and the patient has requested total knee replacement. The risks, benefits and alternatives to surgery were discussed with the patient prior to proceeding. Risks discussed included, but were not limited to, failure to relieve pain, stiffness, infection, nerve damage, deep venous thrombosis, pulmonary embolism, stroke, coma, heart attack, permanent paralysis and , as well as the potential need for eventual revision of the prosthetic. Surgeon: Suzette Henley Career Representative: Corey Penn Anesthesia Type: General and Peripheral nerve block Operative Notes Findings: Severe right knee osteoarthritis, adequate stability, adequate bone Closure Type: primary Specimen(s): none sent Prosthetic devices, grafts, tissues, transplants, or devices: Henley and Nephew journey BCS 2 size 6 femur, size 5 tibia, +9 poly, 3 35 oval patella Estimated Blood Loss (mL): 250 Blood products transfused: none Tourniquet time (min): 82 Procedure in detail: The patient was seen in the pre-operative area, where the patient identified the right knee as the operative site and this was marked with my initials. The patient received pre-operative antibiotics, and was taken to the operating room and placed on the operative table in the supine position. After satisfactory anesthesia, a interactive multimedia designer out was performed. The right leg was encircled with a tourniquet about the proximal thigh, and the leg was prepared from the toes to the tourniquet with ChloroPrep in the usual fashion and draped through sterile drapes. The leg was elevated and exsanguinated with Eschmark bandage and the tourniquet inflated to [250] mmHg pressure. PA was used during the procedure was essential for intraoperative retraction safe implantation of the components. The knee was approached through an approximately 18 cm incision centered over the patella and carried into the knee through a medial parapatellar arthrotomy. A portion of the medial and lateral meniscus was resected. Soft tissue was carefully mobilized around the patella the patella was measured with a caliper. Bone was resected from the patella and the patellar height was reconstituted with up an appropriate sized patellar component. A cover was then placed on the patella. A small amount of additional medial and lateral meniscus was resected. The distal femur was cut at 5?. A [+2] cut was used. It looked like an appropriate distal femoral cut and the cut was made without difficulty. An extramedullary guide was used for the tibial cut. 10 mm was resected off the least affected side.The tibia was prepared. The rotation was assessed. The patient was placed in extension residual medial and lateral meniscus as well as any residual bone was carefully resected. [No] additional tibia was resected. Hemostasis was achieved especially posteriorly. Additional local was injected into the posterior capsule. The extension gap was assessed and additional releases for gap balancing were performed as necessary. It was checked with the gap wire rope sales representative. The femoral component was trial was placed and the notch was finished. The rotation was assessed and the appropriate size femoral guide was placed on the distal femur and finishing cuts were made. There is no evidence of notching. The anterior, posterior and chamfer cuts were then made. The posterior osteophytes and soft tissues were then removed. The posterior capsule was injected with part of a mixture of 60 ml 0.25% Marcaine mixed with 20 ml Exparel for post operative pain control. The remainder of this mixture was injected into the capsule and subcutaneous tissues during cement curing.l tibial and femoral components were then placed and the knee placed through a range of motion. Range of motion was [0-130], with good stability throughout the range. The trials were then removed, and the tibia was finished. The bone was prepared with pulsatile lavage, and dried with a sponge. Cement was applied and the final prosthetics placed. Excess cement was removed during and after cement curing. A brief Betadine soak was performed. After confirming there was no extruded cement posteriorly, the final tibial insert was placed. The knee was copiously irrigated and the tourniquet deflated. Hemostasis was obtained with the Bovie cautery. The capsule was closed with interrupted nonabsorbable suture. The subcutaneous layer was closed with barbed sutures, and the skin with a running 3-0 V-Lock suture and Surgical glue. An Aquacel Ag dressing was applied and the patient was taken to recovery having tolerated the procedure well. Complications: none Status at Discharge Cognitive/behavioral status at discharge: oriented Functional status at discharge: uses cane/walker Exam Vital Signs (past 8 hours): - 07/08/23 04:29 07/08/23 06:00 07/08/23 08:00 Temperature 97.7 F 98.6 F 97.2 F L Pulse Rate 74 88 69 Respiratory Rate 18 17 16 Blood Pressure 130/74 132/68 112/56 L Pulse Oximetry 94 95 95 Oxygen Flow Rate 0 0 07/08/23 08:33 Temperature Pulse Rate 69 Respiratory Rate Blood Pressure 112/56 L Pulse Oximetry Oxygen Flow Rate Oxygen Delivery Method Room Air Oxygen Flow Rate 0 Objective Labs 07/08/23 06:38 Labs: Laboratory Results - last 24 hr 07/08/23 06:38 Hgb 11.2 L Hct 33.2 L PFSH Medical History (Updated 07/01/23 @ 09:13 by Marika Kumar RN) History of COVID-19 (2021) Compression fracture Lower back pain Osteoarthritis HLD (hyperlipidemia) HTN (hypertension) Hearing impaired Surgical History (Updated 07/01/23 @ 08:53 by Marika Kumar RN) 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 Weight bearing as tolerated with walker. Follow up with outpatient PT. Ibuprofen 400mg q4hrs for pain and inflammation Aspirin 81mg twice a day for the next 6 weeks. Follow up in clinic in 2 weeks for wound check. Discharge Plan Discharge Plan Patient Disposition: Home Discharge orders & Medications Discharge Orders: Discharge (Order); Ordered 07/08/23 Ordered By: Suzette Henley Prescriptions: New ibuprofen 400 mg Tablet 400 mg PO Q4H Qty: 100 0RF Continued atorvastatin 20 mg Tablet 20 mg PO DAILY meloxicam 15 mg tablet 15 mg PO DAILY acetaminophen 500 mg capsule 500 mg PO QAM losartan 50 mg Tablet 50 mg PO DAILY vitamins A,C,X-dibd-uswxfs 7,160 unit- 113 mg-100 unit Tablet 1 tab PO DAILY Follow up/Referrals: Matheus Madrid, [Primary Care Provider] - Diet/Activity/Treatments Diet: Diet as Tolerated Activity: Weightbearing as tolerated with walker Cold/Heat Therapy: Ice Pack over knee to reduce pain and inflammation up to three times a day Skin/Wound/Dressing Care Report to your healthcare provider any signs of infection, such as:: chills, fever, night sweats, unusual drainage and unusual redness Dressing: Keep dressing clean and dry. If dressing is disturbed or dirty, change with gauze wrap. Visit Report/Discharge Packet Instructions: DI for Knee Replacement Stand Alone Forms: Patient Portal/API, Surgery Discharge Discharge Data Primary Care Provider: Matheus Madrid Attending Provider: Suzette Henley
--- NOTE | 2023-07-08 15:29 | PC.NURSE ---
Day shift: Pt was planning on discharging this AM. Discharge medications did not include any oxycodone for pain and patient states he does not have any at home and did not receive a prescription for it before the surgery. Called MD Henley and MINESH Penn. Left VM for both. 1 hour later, MARCIE Jonas called OR and spoke with charge nurse Dominic who stated she would let MD know once she was out of surgery. No response for 4 hours. Patient stated I just want to go home. Pt's states she cannot drive after dark. He and his spouse decided to leave without the pain medication prescription. This RN called MINESH Penn again and left voicemail requesting that he send oxycodone prescription to the [facility] in [place] and that patient has decided to leave without it. Pt also requested a handicap parking permit prescription from MINESH. This was not obtained either. Discharge instructions gone over with patient and patient's spouse. All questions answered, patient stated understanding. PIV d/c'ed prior to discharge. All belongings with patient. Escorted patient to main entrance via wheelchair where plans to drive patient home.
== END 2023-07-08 15:41 | disposition home or self-care (01) ==
LOC: OR 12:43 → AC 12:43
PROVIDERS: PCP Family Medicine; Referring Provider Orthopaedic Surgery; Visit Provider Orthopaedic Surgery
PROC: 0SRC0JZ Replacement of Right Knee Joint with Synthetic Substitute, Open Approach (ICD-10-PCS; CPT 27447; principal; 2023-07-07 14:45)
DX: M17.11 Unilateral primary osteoarthritis, right knee (principal); G89.18 Other acute postprocedural pain; M25.761 Osteophyte, right knee
CPT/HCPCS: 27447; 36415; 64450; 73560; 85014; 85018; 97161; 97165; 97535; C1776; J0690; J1100; J2405; J2704